=== PATIENT | male | born 1985 | race Caucasian/White ===

== ENCOUNTER 2017-05-08 03:50 | Emergency (ER) | payer MEDICAID ==
[2017-05-08] MEDS ORDERED: Acetaminophen/oxyCODONE 325-5 MG Tab PO ONE (05:20)
[2017-05-08 05:44] VITALS: BP 148/92
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
[2017-05-08] MEDS ORDERED: Sodium Chloride 0.9% 10 ML Syringe FLUSH ONE (06:20)
[2017-05-08] MEDS ORDERED: Iopamidol 612 MG/ML 150 ML Bottle IV PRN (06:20)
--- NOTE | 2017-05-09 09:14 | CR ---
Shoulder Comp Rt HISTORY: Trauma COMPARISON: None FINDINGS: No fracture or dislocation. AC joint unremarkable. Visualized ribs unremarkable.
--- NOTE | 2017-05-09 09:14 | CR ---
Chest 2V HISTORY: Trauma COMPARISON: None FINDINGS: Cardiac size and pulmonary vessels normal. There are no infiltrates or effusions. No pneumo thorax. The osseous structures appear normal. IMPRESSION: No acute pulmonary disease.
== END 2017-05-08 08:40 ==
LOC: JP.ED 03:50
DX: S12.500A Unspecified displaced fracture of sixth cervical vertebra, initial encounter for closed fracture (principal); S02.113A Unspecified occipital condyle fracture, initial encounter for closed fracture; Z98.890 Other specified postprocedural states; V53.6XXA Passenger in pick-up truck or van injured in collision with car, pick-up truck or van in traffic accident, initial encounter
CPT/HCPCS: 36415; 70450; 71020; 71260; 72125; 73030; 74177; 80053; 81001; 85025; 99284; A9270; J7030; J7050